=== PATIENT | male | born 1955 | race Caucasian/White ===

== ENCOUNTER 2017-07-01 11:12 | Outpatient (CLI) | payer OTHER ==
[2017-07-01 18:31] LABS: BASOPHILS % (AUTO) 0.6 %; EOSINOPHILS # (AUTO) 0.2 10^3/uL (0.0-0.7); EOSINOPHILS % (AUTO) 3.7 %; HCT - HEMATOCRIT 46.9 % (42.0-52.0); HGB - HEMOGLOBIN 16.1 g/dL (14.0-18.0); LYMPHOCYTES # (AUTO) 1.8 10^3/uL (1.5-3.5); LYMPHOCYTES % (AUTO) 30.4 %; MEAN CORPUSCULAR HEMOGLOBIN 31.3 pg (27.0-31.0); MEAN CORPUSCULAR HGB CONC 34.3 g/dL (32.0-36.0); MEAN CORPUSCULAR VOLUME 91.1 fL (80.0-94.0); MEAN PLATELET VOLUME 8.7 fL (7.4-11.4); MONOCYTES # (AUTO) 0.5 10^3/uL (0.0-1.0); MONOCYTES % (AUTO) 8.6 %; NEUTROPHILS # (AUTO) 3.3 10^3/uL (1.5-6.6); NEUTROPHILS % (AUTO) 56.7 %; NUCLEATED RED BLOOD CELLS AUTO 0.2 /100WBC; RED BLOOD COUNT 5.14 10^6/uL (4.70-6.10); UNCORRECTED WHITE BLOOD COUNT 5.8 x10^3/uL; WHITE BLOOD COUNT 5.8 x10^3/uL (4.8-10.8)
[2017-07-01 18:46] LABS: ALBUMIN/GLOBULIN RATIO 1.8 (1.0-2.2); BILIRUBIN,TOTAL 0.7 mg/dL (0.2-1.0); CALCIUM 9.2 mg/dL (8.5-10.3); CREATININE 0.9 mg/dL (0.6-1.2); TOTAL PROTEIN 7.6 g/dL (6.7-8.2)
== END 2017-07-01 11:13 | disposition home or self-care (01) ==
LOC: LAB.F 11:12
PROVIDERS: ATTEND Family Medicine
DX: R10.9 Unspecified abdominal pain (principal)
CPT/HCPCS: 36415; 80053; 82150; 83690; 85025

== ENCOUNTER 2017-07-09 14:39 | Outpatient (CLI) | payer OTHER ==
--- NOTE | 2017-07-10 18:49 | Ultrasound Report ---
EXAM: ABDOMEN ULTRASOUND LIMITED, RUQ EXAM DATE: 07/09/2017 04:59 PM. CLINICAL HISTORY: Abdominal pain. COMPARISON: None. TECHNIQUE: Real-time scanning was performed with static images obtained. FINDINGS: Liver: Liver parenchyma is heterogeneous and markedly hyperechoic. No discrete liver masses or intrah epatic bile duct dilation. However, evaluation for masses is limited secondary to the echogenicity. 0 .9 cm simple right renal cyst. Elongated right liver measures 17.5 cm. Main portal vein flow: Hepatop etal. Gallbladder: Normal. No stones, wall thickening, or sonographic Weiner's sign. Biliary System: CBD measures 2.7 mm. No intrahepatic or extrahepatic ductal dilatation. Right kidney: 10.7 cm. No hydronephrosis. Other: None. IMPRESSION: 1. Markedly hyperechoic and enlarged liver consistent with fatty infiltration. No mass. 2. Normal common bile duct and gallbladder. 3. No hydronephrosis. [facility] Referring Provider Line: [phone] SITE ID: [id number]
== END 2017-07-09 14:40 | disposition home or self-care (01) ==
LOC: DI 14:39
PROVIDERS: ATTEND Family Medicine
DX: R10.9 Unspecified abdominal pain (principal); R16.0 Hepatomegaly, not elsewhere classified
CPT/HCPCS: 76705

== ENCOUNTER 2017-08-26 08:39 | Outpatient (CLI) | payer OTHER ==
[2017-08-26 10:50] LABS: CHOL/HDL RATIO 5.7 (<5.0); CHOLESTEROL 240 mg/dL; HDL CHOLESTEROL 42 mg/dL; LDL CHOLESTEROL,CALCULATED 172 mg/dL; LDL/HDL RATIO 4.1 (<3.6); VLDL CHOLESTEROL 26 mg/dL
== END 2017-08-26 08:40 | disposition home or self-care (01) ==
LOC: LAB.F 08:39
PROVIDERS: ATTEND Family Medicine
DX: Z00.00 Encounter for general adult medical examination without abnormal findings (principal); Z12.5 Encounter for screening for malignant neoplasm of prostate
CPT/HCPCS: 36415; 80061; 83721; 84153

== ENCOUNTER 2017-11-29 16:10 | Outpatient (CLI) | payer OTHER | END 2017-11-29 16:11 | LOC: LAB.R 16:10 | PROVIDERS: ATTEND Internal Medicine | DX: J02.9 Acute pharyngitis, unspecified (principal) | CPT/HCPCS: 87070 ==

== ENCOUNTER 2022-09-04 07:27 | Outpatient (CLI) | payer MEDICARE ==
[2022-09-04 14:25] LABS: BASOPHILS % (AUTO) 1.1 %; EOSINOPHILS # (AUTO) 0.2 10^3/uL (0.0-0.7); EOSINOPHILS % (AUTO) 5.2 %; HGB - HEMOGLOBIN 15.5 g/dL (14.0-18.0); LYMPHOCYTES % (AUTO) 27.5 %; MEAN CORPUSCULAR HEMOGLOBIN 31.6 pg (27.0-31.0); MEAN CORPUSCULAR VOLUME 95.7 fL (80.0-94.0); MEAN PLATELET VOLUME 10.8 fL (7.4-11.4); MONOCYTES # (AUTO) 0.4 10^3/uL (0.0-1.0); MONOCYTES % (AUTO) 9.5 %; NEUTROPHILS # (AUTO) 2.1 10^3/uL (1.5-6.6); NEUTROPHILS % (AUTO) 56.4 %; PLT - PLATELET COUNT 174 10^3/uL (130-450); RED BLOOD COUNT 4.91 10^6/uL (4.70-6.10); RED CELL DISTRIBUTION WIDTH 12.1 % (12.0-15.0); WHITE BLOOD COUNT 3.7 x10^3/uL (4.8-10.8)
[2022-09-04 15:51] LABS: ALBUMIN 4.7 g/dL (3.2-5.5); ALBUMIN/GLOBULIN RATIO 2.1 (1.0-2.2); BILIRUBIN,TOTAL 1.4 mg/dL (0.2-1.0); CALCIUM 9.4 mg/dL (8.5-10.3); CREATININE 0.7 mg/dL (0.6-1.2); POTASSIUM 4.3 mmol/L (3.5-5.0); TOTAL PROTEIN 6.9 g/dL (6.7-8.2)
[2022-09-04 16:18] LABS: THYROID STIMULATING HORMONE 1.84 uIU/mL (0.34-5.60)
[2022-09-04 22:13] LABS: ESTIMATED AVERAGE GLUCOSE 100 mg/dL (70-100); HEMOGLOBIN A1c% 5.1 % (4.27-6.07)
== END 2022-09-04 07:28 | disposition home or self-care (01) ==
LOC: LAB.S 07:27
PROVIDERS: ATTEND Nurse Practitioner Acute Care
DX: Z13.228 Encounter for screening for other metabolic disorders (principal); Z13.1 Encounter for screening for diabetes mellitus; Z12.5 Encounter for screening for malignant neoplasm of prostate; Z13.29 Encounter for screening for other suspected endocrine disorder; Z13.0 Encounter for screening for diseases of the blood and blood-forming organs and certain disorders involving the immune mechanism
CPT/HCPCS: 36415; 80053; 83036; 84443; 85025; G0103; 84153

== ENCOUNTER 2022-11-30 07:00 | Outpatient (CLI) | payer MEDICARE ==
--- NOTE | 2022-11-30 12:59 | XRAY Report ---
PROCEDURE: Cervical Spine 2 View INDICATIONS: CERVICAL RADICULOPATHY, RIGHT TECHNIQUE: 3 view(s) of the cervical spine were acquired. COMPARISON: None. FINDINGS: Bones: No fractures or dislocations to the C7-T1 level. The lateral masses of C1 appear intact on t he odontoid view. No suspicious bony lesions. Cervical straightening is present. Mild scattered deg enerative disc space narrowing of the cervical spine most severe at C6-7. Scattered uncovertebral art hropathy is present. Soft tissues: No prevertebral soft tissue swelling. IMPRESSION: Degenerative changes most severe at C6-7. Reviewed by: Antonieta Steele MD on 11/30/2022 12:57 PM PDT Approved by: Antonieta Steele MD on 11/30/2022 12:57 PM PDT Station ID: [id number]
== END 2022-11-30 23:59 | disposition home or self-care (01) ==
LOC: DI.S 07:00
PROVIDERS: ATTEND Physician Assistant
DX: M47.22 Other spondylosis with radiculopathy, cervical region (principal)

== ENCOUNTER 2022-12-12 08:33 | Outpatient (CLI) | payer MEDICARE ==
--- NOTE | 2022-12-14 11:43 | MRI Report ---
PROCEDURE: CERVICAL SPINE WO INDICATIONS: CERVICAL RADICULOPATHY TECHNIQUE: Noncontrast sagittal T1 spin echo and T2 fast spin echo, sagittal STIR, foraminal oblique sagittal T2 fast spin echo, and axial gradient echo or T2 fast spin echo through the cervical spine. COMPARISON: Plain film 11/30/2022 FINDINGS: Image quality: Excellent. Alignment and Curvature: There is normal bony alignment. Slight straightening of the normal cervica l lordosis. Bone Marrow: Marrow demonstrates normal overall signal. Spinal Cord: Visualized spinal cord has normal size and signal. No cerebellar tonsillar herniation. Paraspinous Soft Tissues: No paravertebral masses. Prevertebral soft tissues are normal in thicknes s. C2-C3: Normal in appearance. C3-C4: Normal in appearance. C4-C5: Normal in appearance. C5-C6: Mild right uncovertebral joint hypertrophy causing mild right foraminal narrowing. C6-C7: Mild disc desiccation and height loss. Mild right uncovertebral joint hypertrophy and facet a rthropathy cause mild right foraminal narrowing.. C7-T1: Normal in appearance. IMPRESSION: 1. Mild degenerative changes in the cervical spine resulting in mild right foraminal narrowing at C5- 6 and C6-7. Reviewed by: Vicky Salter MD on 12/14/2022 11:42 AM PDT Approved by: Vicky Salter MD on 12/14/2022 11:42 AM PDT Station ID: [id number]
== END 2022-12-12 08:34 | disposition home or self-care (01) ==
LOC: DI 08:33
PROVIDERS: ATTEND Physician Assistant
DX: M47.812 Spondylosis without myelopathy or radiculopathy, cervical region (principal); M50.323 Other cervical disc degeneration at C6-C7 level; M48.02 Spinal stenosis, cervical region

== ENCOUNTER 2023-02-04 13:07 | Outpatient (CLI) | payer MEDICARE ==
[2023-02-04 20:08] LABS: BILIRUBIN,DIRECT 0.16 mg/dL (0.03-0.18); BILIRUBIN,INDIRECT 0.6 mg/dL; BILIRUBIN,TOTAL 0.8 mg/dL (0.2-1.0)
== END 2023-02-04 13:08 | disposition home or self-care (01) ==
LOC: LAB.S 13:07
PROVIDERS: ATTEND Nurse Practitioner Acute Care
DX: E80.6 Other disorders of bilirubin metabolism (principal)
CPT/HCPCS: 36415; 82247; 82248